=== PATIENT | male | born 1995 | race Caucasian/White ===

== ENCOUNTER 2016-08-18 01:38 | Emergency (ER) | payer BC, OTHER ==
[~2016-08-18] VITALS: Ht 180.3 cm; Wt 79.9 kg
[~2016-08-18 01:38] MED LIST: SINGULAIR10 MG PO
[2016-08-18] MEDS ORDERED: MOTRIN600 MG PO (02:23)
[2016-08-18 02:55] VITALS: BP 150/86
== END 2016-08-18 02:59 | disposition home or self-care (01) ==
LOC: EME 01:38
DX: S80.02XA Contusion of left knee, initial encounter (principal); W18.30XA Fall on same level, unspecified, initial encounter; Z72.0 Tobacco use
CPT/HCPCS: 73564; 99281; 99284

== ENCOUNTER 2016-11-27 15:30 | Emergency (ER) | payer BC, OTHER ==
[~2016-11-27] VITALS: Ht 180.3 cm; Wt 89.3 kg
[~2016-11-27 15:30] MED LIST changes: +MOTRIN600 MG PO
[2016-11-27] MEDS ORDERED: MOTRIN800 MG PO (17:08)
[2016-11-27] MEDS ORDERED: ULTRAM50 MG PO (17:08)
[2016-11-27 18:47] VITALS: BP 146/91
== END 2016-11-27 18:58 | disposition home or self-care (01) ==
LOC: EME 15:30
PROC: 2W3RX1Z Immobilization of Left Lower Leg using Splint (ICD-10-PCS; principal; 2016-11-27)
DX: S82.65XA Nondisplaced fracture of lateral malleolus of left fibula, initial encounter for closed fracture (principal); W10.9XXA Fall (on) (from) unspecified stairs and steps, initial encounter; Z87.891 Personal history of nicotine dependence; Z88.0 Allergy status to penicillin
CPT/HCPCS: 73610; 99281; 99284

== ENCOUNTER 2017-01-25 21:24 | Emergency (ER) | payer BC, OTHER ==
[~2017-01-25] VITALS: Ht 180.3 cm; Wt 79.6 kg
[~2017-01-25 21:24] MED LIST changes: +MOTRIN800 MG PO; +ULTRAM50 MG PO
[2017-01-25 22:12] LABS: HEMATOCRIT 42.7 % (38.0-50.0); MCH 27.2 PG (29.0-34.0); MCHC 32.1 G/DL (30.0-36.0); MCV 84.9 FL (86-99); MEAN PLAT.VOLUME 9.6 uM^3 (9.0-12.4); PLATELET COUNT 227 K/uL (156-360); RBC DIS.WIDTH-CV 14.7 % (11.8-14.6); RBC DIS.WIDTH-SD 45.7 % (39-53); RED BLOOD COUNT 5.03 M/uL (4.00-5.50); WHITE BLOOD COUNT 10.2 K/uL (4.1-10.2)
[2017-01-25 22:19] LABS: ADD MIUA? NO; BILIRUBIN NEGATIVE; BLOOD NEGATIVE; COLOR STRAW ((YELLOW)); GLUCOSE (STRIP) NEGATIVE; KETONES NEGATIVE; LEUKOCYTES NEGATIVE; NITRITE NEGATIVE; PROTEIN (STRIP) NEGATIVE; SPECIFIC GRAVITY 1.008 (1.000-1.030); UCUL ADDED? NO; UROBILINOGEN 0.2 MG/DL (0.2-1.0)
[2017-01-25 22:21] LABS: CHLORIDE 100 mEq/L (99-109); POTASSIUM 3.8 mEq/L (3.7-5.4); SODIUM 139 mEq/L (136-147)
[2017-01-25 22:23] LABS: GLUCOSE 103 mg/dL (70-99)
[2017-01-25 22:24] LABS: ANION GAP 11 MEQ/L (2-14)
[2017-01-25 22:25] LABS: TOTAL BILIRUBIN 0.3 mg/dL (0.0-1.0)
[2017-01-25 22:27] LABS: ALKALINE PHOSPHATASE 77 IU/L (3-129); GFR ESTIMATE (CALCULATED) > 59 mL/min/
[2017-01-25 22:28] LABS: UREA NITROGEN (BUN) 12 mg/dL (9-23)
[2017-01-25 22:30] LABS: LIPASE 16 U/L (1.0-51.0)
[2017-01-25 23:00] LABS: INTERNAL CONTROL VALID? YES; MONOSPOT (MONONUCLEOSIS SEROL) POSITIVE
[2017-01-25 23:48] VITALS: BP 155/86
== END 2017-01-25 23:48 | disposition home or self-care (01) ==
LOC: EME 21:24
PROVIDERS: Physician Assistant
DX: B27.90 Infectious mononucleosis, unspecified without complication (principal); R10.11 Right upper quadrant pain; Z88.0 Allergy status to penicillin; Z88.1 Allergy status to other antibiotic agents; Z87.891 Personal history of nicotine dependence
CPT/HCPCS: 74177; 80053; 81003; 83690; 85027; 86308; 93005; 99281; 99284; J7030; S0028

== ENCOUNTER 2017-02-05 20:32 | Emergency (ER) | payer BC, OTHER ==
[~2017-02-05] VITALS: Ht 180.3 cm; Wt 78.7 kg
[2017-02-05 22:05] LABS: HEMATOCRIT 45.4 % (38.0-50.0); MCH 27.2 PG (29.0-34.0); MCHC 32.8 G/DL (30.0-36.0); MCV 82.8 FL (86-99); PLATELET COUNT 235 K/uL (156-360); RBC DIS.WIDTH-CV 14.6 % (11.8-14.6); RBC DIS.WIDTH-SD 43.9 % (39-53); RED BLOOD COUNT 5.48 M/uL (4.00-5.50); WHITE BLOOD COUNT 11.6 K/uL (4.1-10.2)
[2017-02-05 22:14] LABS: CHLORIDE 102 mEq/L (99-109); POTASSIUM 4.4 mEq/L (3.7-5.4); SODIUM 139 mEq/L (136-147)
[2017-02-05 22:16] LABS: GLUCOSE 93 mg/dL (70-99)
[2017-02-05 22:17] LABS: ANION GAP 14 MEQ/L (2-14)
[2017-02-05 22:20] LABS: GFR ESTIMATE (CALCULATED) > 59 mL/min/; UREA NITROGEN (BUN) 10 mg/dL (9-23)
[2017-02-05 22:27] LABS: TROP-I INTERPRETATION NEGATIVE; TROPONIN-I < 0.01 ng/mL (0.0-0.30)
[2017-02-05 23:19] LABS: D-DIMER ELISA < 150.00 ng/mLDDU (<230)
[2017-02-05 23:20] LABS: MAGNESIUM 2.3 mg/dL (1.3-2.7)
[2017-02-06 00:28] VITALS: BP 126/82
== END 2017-02-06 00:29 | disposition home or self-care (01) ==
LOC: EME 20:32
DX: R00.2 Palpitations (principal); R07.89 Other chest pain; F17.200 Nicotine dependence, unspecified, uncomplicated; Z71.6 Tobacco abuse counseling; I49.8 Other specified cardiac arrhythmias; R00.0 Tachycardia, unspecified
CPT/HCPCS: 71020; 80048; 83735; 84100; 84484; 85027; 85379; 93005; 99281; 99283

== ENCOUNTER 2017-05-14 23:47 | Emergency (ER) | payer BC, OTHER ==
[~2017-05-14] VITALS: Ht 180.3 cm; Wt 70.3 kg
[2017-05-15] MEDS ORDERED: ZITHROMAX Z-PA250 MG PO (03:16)
[2017-05-15] MEDS ORDERED: PREDNISONE20 MG PO (03:16)
[2017-05-15] MEDS ORDERED: TYLENOL WITH C1 EACH PO (03:16)
[2017-05-15 03:27] VITALS: BP 140/87
== END 2017-05-15 03:28 | disposition home or self-care (01) ==
LOC: EXP 23:47 → EME 23:47 → EXP 05-15 03:28
DX: J03.90 Acute tonsillitis, unspecified (principal); Z88.0 Allergy status to penicillin; Z91.040 Latex allergy status
CPT/HCPCS: 87651 90; 99281; 99283; J7512

== ENCOUNTER 2017-05-19 23:48 | Emergency (ER) | payer BC, OTHER ==
[~2017-05-19] VITALS: Ht 180.3 cm; Wt 78.7 kg
[~2017-05-19 23:48] MED LIST changes: +PREDNISONE20 MG PO; +TYLENOL WITH C1 EACH PO; +ZITHROMAX Z-PA250 MG PO
[2017-05-20 00:21] LABS: HEMATOCRIT 43.2 % (38.0-50.0); MCH 27.3 PG (29.0-34.0); MCHC 33.1 G/DL (30.0-36.0); MCV 82.6 FL (86-99); MEAN PLAT.VOLUME 10.2 uM^3 (9.0-12.4); PLATELET COUNT 263 K/uL (156-360); RBC DIS.WIDTH-CV 12.7 % (11.8-14.6); RBC DIS.WIDTH-SD 38.4 % (39-53); RED BLOOD COUNT 5.23 M/uL (4.00-5.50); WHITE BLOOD COUNT 11.3 K/uL (4.1-10.2)
[2017-05-20 00:46] LABS: CHLORIDE 102 mEq/L (99-109); POTASSIUM 3.8 mEq/L (3.7-5.4); SODIUM 137 mEq/L (136-147)
[2017-05-20 00:49] LABS: GLUCOSE 107 mg/dL (70-99)
[2017-05-20 00:50] LABS: ANION GAP 10 MEQ/L (2-14)
[2017-05-20 00:51] LABS: TOTAL BILIRUBIN 0.3 mg/dL (0.0-1.0)
[2017-05-20 00:52] LABS: ALKALINE PHOSPHATASE 84 IU/L (3-129); GFR ESTIMATE (CALCULATED) > 59 mL/min/ (58.99-99999)
[2017-05-20 00:53] LABS: UREA NITROGEN (BUN) 15 mg/dL (9-23)
[2017-05-20 00:56] LABS: LIPASE 12 U/L (1.0-51.0)
[2017-05-20 01:56] LABS: ADD MIUA? NO; BILIRUBIN NEGATIVE; BLOOD NEGATIVE; COLOR YELLOW ((YELLOW)); GLUCOSE (STRIP) NEGATIVE; KETONES NEGATIVE; LEUKOCYTES NEGATIVE; NITRITE NEGATIVE; PROTEIN (STRIP) NEGATIVE; SPECIFIC GRAVITY 1.016 (1.000-1.030); UCUL ADDED? NO; UROBILINOGEN 0.2 MG/DL (0.2-1.0)
[2017-05-20] MEDS ORDERED: ZOFRAN4 MG PO (02:11)
[2017-05-20 02:27] VITALS: BP 142/80
== END 2017-05-20 02:28 | disposition home or self-care (01) ==
LOC: EME 23:48
DX: R11.0 Nausea (principal); R10.9 Unspecified abdominal pain; T36.3X5A Adverse effect of macrolides, initial encounter; Z91.040 Latex allergy status; Z88.0 Allergy status to penicillin
CPT/HCPCS: 80053; 81003; 83690; 85027; 99281; 99284

== ENCOUNTER 2017-05-24 17:10 | Emergency (ER) | payer BC, OTHER ==
[~2017-05-24] VITALS: Ht 180.3 cm; Wt 81.2 kg
[~2017-05-24 17:10] MED LIST changes: +ZOFRAN4 MG PO
[2017-05-24 20:30] VITALS: BP 146/98
== END 2017-05-24 20:31 | disposition home or self-care (01) ==
LOC: EME 17:10
DX: G62.9 Polyneuropathy, unspecified (principal); F17.200 Nicotine dependence, unspecified, uncomplicated; Z88.0 Allergy status to penicillin
CPT/HCPCS: 99281; 99284

== ENCOUNTER 2017-08-05 00:24 | Emergency (ER) | payer BC, OTHER ==
[~2017-08-05] VITALS: Ht 180.3 cm; Wt 76.5 kg
[2017-08-05 01:10] LABS: HEMATOCRIT 43.2 % (38.0-50.0); HEMOGLOBIN 14.7 G/DL (12.5-16.6); MCV 82.3 FL (86-99); PLATELET COUNT 221 K/uL (156-360); RBC DIS.WIDTH-CV 14.6 % (11.8-14.6); RBC DIS.WIDTH-SD 42.5 % (39-53); RED BLOOD COUNT 5.25 M/uL (4.00-5.50); WHITE BLOOD COUNT 12.9 K/uL (4.1-10.2)
[2017-08-05 01:20] LABS: ALBUMIN 4.4 g/dL (3.2-4.8); CHLORIDE 105 mEq/L (99-109); POTASSIUM 3.6 mEq/L (3.7-5.4); SODIUM 138 mEq/L (136-147)
[2017-08-05 01:22] LABS: GLUCOSE 108 mg/dL (70-99); TOTAL PROTEIN 7.4 g/dL (6.4-8.3)
[2017-08-05 01:24] LABS: TOTAL BILIRUBIN 0.6 mg/dL (0.0-1.0)
[2017-08-05 01:26] LABS: ALKALINE PHOSPHATASE 91 IU/L (3-129); CREATININE 0.9 mg/dL (0.6-1.3); GFR ESTIMATE (CALCULATED) > 59 mL/min/ (58.99-99999)
[2017-08-05 01:27] LABS: AST (GOT) 15 IU/L (2-34); UREA NITROGEN (BUN) 12 mg/dL (9-23)
[2017-08-05 01:29] LABS: ALT (GPT) 15 IU/L (3-49); LIPASE 26 U/L (1.0-51.0)
[2017-08-05 01:39] LABS: APPEARANCE SL.HAZY ((CLEAR)); BILIRUBIN NEGATIVE; BLOOD NEGATIVE; COLOR YELLOW ((YELLOW)); GLUCOSE (STRIP) NEGATIVE; KETONES NEGATIVE; LEUKOCYTES NEGATIVE; NITRITE NEGATIVE; PROTEIN (STRIP) 30; SPECIFIC GRAVITY 1.025 (1.000-1.030); UROBILINOGEN 0.2 MG/DL (0.2-1.0)
[2017-08-05 01:47] LABS: BACTERIA RARE /HPF; EPITHELIAL CELLS NONE SEEN /HPF; MUCUS 1+ /LPF; RED BLOOD CELLS 0-5 /HPF (0-5); UCUL ADDED? NO; WHITE BLOOD CELLS 0-5 /HPF (0-5)
[2017-08-05] MEDS ORDERED: ZOFRAN4 MG PO (03:22)
[2017-08-05 03:31] VITALS: BP 113/74
== END 2017-08-05 03:33 | disposition home or self-care (01) ==
LOC: EME 00:24
PROVIDERS: Emergency Medicine
DX: K52.9 Noninfective gastroenteritis and colitis, unspecified (principal); R10.31 Right lower quadrant pain; F17.200 Nicotine dependence, unspecified, uncomplicated; Z91.040 Latex allergy status; Z88.0 Allergy status to penicillin
CPT/HCPCS: 74177; 80053; 81003; 83690; 85027; 99281; 99285; J2270; J2405; J7030

== ENCOUNTER 2017-08-22 04:23 | Emergency (ER) | payer OTHER, BC ==
[2017-08-22 04:37] LABS: BASOPHIL (%) 0.5 % (0-1); BASOPHIL COUNT 0.1 K/uL (0-0.1); EOSINOPHIL (%) 3.3 % (0-5); EOSINOPHIL COUNT 0.4 K/uL (0-0.3); HEMATOCRIT 43.1 % (38.0-50.0); HEMOGLOBIN 14.3 G/DL (12.5-16.6); IMMATURE GRANULOCYTE (%) 0.2 % (0.0-0.7); LYMPHOCYTE (%) 39.7 % (15-42); LYMPHOCYTE COUNT 4.2 K/uL (1.0-2.8); MCH 28.1 PG (29.0-34.0); MCHC 33.2 G/DL (30.0-36.0); MCV 84.7 FL (86-99); MONOCYTE (%) 8.3 % (3-12); MONOCYTE COUNT 0.9 K/uL (0-0.8); PLATELET COUNT 183 K/uL (156-360); RBC DIS.WIDTH-CV 15.3 % (11.8-14.6); RBC DIS.WIDTH-SD 47.4 % (39-53); RED BLOOD COUNT 5.09 M/uL (4.00-5.50); WHITE BLOOD COUNT 10.5 K/uL (4.1-10.2)
[2017-08-22 04:46] LABS: AMYLASE 43 IU/L (1-118); CHLORIDE 106 mEq/L (99-109); POTASSIUM 3.2 mEq/L (3.7-5.4); SODIUM 142 mEq/L (136-147)
[2017-08-22 04:48] LABS: GLUCOSE 149 mg/dL (70-99)
[2017-08-22 04:51] LABS: SERUM ETHYL ALCOHOL 82 mg/dL
[2017-08-22 04:52] LABS: CREATININE 0.9 mg/dL (0.6-1.3); GFR ESTIMATE (CALCULATED) > 59 mL/min/ (58.99-99999)
[2017-08-22 04:53] LABS: UREA NITROGEN (BUN) 10 mg/dL (9-23)
[2017-08-22 04:55] LABS: LIPASE 18 U/L (1.0-51.0)
[2017-08-22] MEDS ORDERED: MOTRIN800 MG PO (05:43)
== END 2017-08-22 06:22 | disposition home or self-care (01) ==
LOC: TRA 04:23
PROVIDERS: Emergency Medicine
PROC: 0HQ4XZZ Repair Neck Skin, External Approach (ICD-10-PCS; principal; 2017-08-22)
DX: S11.91XA Laceration without foreign body of unspecified part of neck, initial encounter (principal); S01.511A Laceration without foreign body of lip, initial encounter; S40.211A Abrasion of right shoulder, initial encounter; S50.811A Abrasion of right forearm, initial encounter; H57.10 Ocular pain, unspecified eye; F10.99 Alcohol use, unspecified with unspecified alcohol-induced disorder; V44.6XXA Car passenger injured in collision with heavy transport vehicle or bus in traffic accident, initial encounter; Y92.410 Unspecified street and highway as the place of occurrence of the external cause; Y90.4 Blood alcohol level of 80-99 mg/100 ml; F17.200 Nicotine dependence, unspecified, uncomplicated
CPT/HCPCS: 70450; 71260; 72125; 73030; 73060; 73090; 74177; 80048; 81003; 82150; 83690; 85025; 86850; 86900; 86901; 99281; 99285; G0480; J2270; J2405